=== PATIENT | male | born 1950 | race Asian ===

== ENCOUNTER 2016-09-01 12:11 | Emergency (ER) | payer MEDICARE, OTHER ==
[~2016-09-01] VITALS: Ht 162.6 cm; Wt 70.3 kg
[2016-09-01 12:25] VITALS: BP 117/74
== END 2016-09-01 14:05 | disposition home or self-care (01) ==
LOC: ER 12:11
DX: S61.431A Puncture wound without foreign body of right hand, initial encounter (principal); W54.0XXA Bitten by dog, initial encounter; Y93.89 Activity, other specified; Y99.8 Other external cause status; Y92.488 Other paved roadways as the place of occurrence of the external cause